=== PATIENT | female | born 1990 | race Two or more races ===

== ENCOUNTER 2024-11-15 18:24 | Emergency (ER) | payer OTHER, SELFPAY ==
[2024-11-15 20:05] VITALS: BP 133/81; PULSE 66; RESP 17; TEMP 37.2; O2SAT 99
--- NOTE | 2024-11-15 20:23 | PD.EDNV ---
Nausea/Vomit./Diarrhea-RME/HPI General Chief complaint: Nausea/Vomiting/Diarrhea Stated complaint: VOMITING X 2 DAYS Time Seen by Provider: 11/15/24 20:20 Arrival date/time: 11/15/24 18:24 34F with history of marijuana use presents to ED with several days of N/V and non-bloody diarrhea. Patient has had intermittent N/V for over 1 year now. Limitations: no limitations Related Data Previous Rx's ?Medication ?Instructions ?Recorded cefuroxime axetil 500 mg tablet 500 mg PO BID 7 days #14 tabs 11/15/24 metoclopramide HCl 5 mg tablet 5 mg PO BID PRN nausea and 11/15/24 (Reglan) vomiting #14 tabs Allergies Allergy/AdvReac Type Severity Reaction Status Date / Time No Known Allergies Allergy Verified 11/15/24 18:27 Review of Systems Review of Systems Systems Reviewed: All systems reviewed, normal except as documented Gastrointestinal Gastrointestinal: Reports as per HPI, Reports diarrhea, Reports nausea and Reports vomiting Past Medical History Past Medical History CARDIAC: Negative Congestive Heart Failure RESPIRATORY: Negative Chronic Obstructive Pulmonary Disease (COPD) GASTROINTESTINAL: Positive Gall Bladder Disease GENITOURINARY: Negative Renal Disease ENDOCRINE: Negative Diabetes Mellitus Type 1 or Diabetes Mellitus Type 2 PSYCHO/SOCIAL: Positive Depression Social History SMOKING STATUS: Never smoker SUBSTANCE USE: marijuana ED Exam General Limitations: Present no limitations General appearance: Present alert and in no apparent distress Head Head exam: Present atraumatic Neck Neck exam: Present normal inspection, full ROM and trachea midline Chest Chest inspection: Present normal inspection and symmetric chest wall rise Psychiatric Psychiatric exam: Present normal affect and normal mood Skin Skin exam: Present warm, intact and normal color Course Quality Measures none Orders Category Date Time Status Insert IV NOW Care 11/15/24 21:47 Completed CBC Stat Lab 11/15/24 20:34 Completed CMP [Comprehensive Metabolic Panel] Stat Lab 11/15/24 20:34 Completed Drug Screen,Urine Stat Lab 11/15/24 21:08 Completed HCG Qualitative,Urine Stat Lab 11/15/24 21:08 Completed Lactate (Lactic Acid) Stat Lab 11/15/24 20:34 Completed Procalcitonin Stat Lab 11/15/24 20:34 Completed Urinalysis, C/S if Indicated Stat Lab 11/15/24 21:08 Completed Urine Culture Stat Lab 11/15/24 21:08 Received DiphenhydrAMINE INJ [Benadryl Inj] Med 11/15/24 22:32 Discontinued 25 mg IVP X1 ONE Metoclopramide Inj [Reglan Inj] Med 11/15/24 22:32 Discontinued 10 mg IVP X1 ONE Ondansetron Odt [Zofran Odt] Med 11/15/24 20:21 Discontinued 4 mg PO X1 ONE Pantoprazole Inj [Protonix Inj] Med 11/15/24 22:32 Discontinued 40 mg IVP X1 ONE Ringers Lactated 1000 ml [Lactated Ringers] 1,000 ml Med 11/15/24 21:47 Discontinued IV 999 mls/hr Ringers Lactated 1000 ml [Lactated Ringers] 1,000 ml Med 11/15/24 23:14 Discontinued IV 999 mls/hr cefTRIAXone/D5w 1gm IV premix [Rocephin/D5w 1gm IV Med 11/15/24 21:49 Discontinued premix] 1 gm in 50 ml IV X1 Vital Signs Vital signs: Vital Signs Temperature 99.0 F 11/15/24 20:05 Pulse Rate 66 11/15/24 20:05 Respiratory Rate 17 11/15/24 20:05 Blood Pressure 133/81 H 11/15/24 20:05 Pulse Oximetry (%) 99 11/15/24 20:05 Oxygen Delivery Method Room Air 11/15/24 20:05 O2 at 99% on RA and WNLs Nausea/Vomiting/Diarrhea MDM Narrative MDM Narrative:: 34F with history of marijuana use presents to ED with several days of N/V and non-bloody diarrhea. Patient has had intermittent N/V for over 1 year now. Physical exam reveals tired-appearing female. Patient is afebrile, alert, but appears tired. No leukocytosis. CMP unremarkable. HCG neg. Marijuana positive. UA dehydration and UTI. Meds and counselor aid given. Patient data External records reviewed:: [facility] previous records Clinical information provided by:: patient Social determinants that could affect healthcare access:: mental health Patient has the following chronic illnesses:: marijuana use How is presenting disease/condition affected by chronic disease/condition?: exacerbated by Evaluation data The following diagnostics were reviewed and interpreted by me:: lab results Lab and/or radiology exams considered but not ordered:: ordered Interpretation Summary: above Medications / Prescriptions Medications / Prescriptions considered but not ordered:: ordered Medication administrations:: Medication Administration History Discontinued Medications Diphenhydramine HCl (Diphenhydramine Inj 50 Mg/Ml Vial) 25 mg IVP X1 ONE Stop: 11/15/24 22:33 Last Admin: 11/15/24 22:58 Dose: 25 mg Documented By: KANIKA Lactated Ringer's (Lactated Ringers) 1,000 mls @ 999 mls/hr IV .Q1H1M ONE Stop: 11/15/24 22:47 Last Admin: 11/15/24 22:27 Dose: 999 mls/hr Documented By: KANIKA Ceftriaxone Sodium/Dextrose (Rocephin/D5w 1gm Iv Premix) 1 gm in 50 mls @ 100 mls/hr IV X1 ONE Stop: 11/15/24 22:18 Last Infusion: 11/15/24 23:03 Dose: Infused Documented By: Admin: 11/15/24 22:26 Dose: 100 mls/hr Documented By: KANIKA Lactated Ringer's (Lactated Ringers) 1,000 mls @ 999 mls/hr IV .Q1H1M ONE Stop: 11/16/24 00:14 Last Admin: 11/15/24 23:42 Dose: Not Given Documented By: KANIKA Non-Admin Reason: Cancelled by Provider Metoclopramide HCl (Metoclopramide Inj 5 Mg/Ml Vial 2 Ml) 10 mg IVP X1 ONE; Protocol Stop: 11/15/24 22:33 Last Admin: 11/15/24 22:58 Dose: 10 mg Documented By: KANIKA Ondansetron HCl (Ondansetron Odt 4 Mg Tabrap) 4 mg PO X1 ONE; Protocol Stop: 11/15/24 20:22 Last Admin: 11/15/24 20:26 Dose: 4 mg Documented By: JESSE Pantoprazole Sodium (Pantoprazole Inj 40 Mg Vial) 40 mg IVP X1 ONE Stop: 11/15/24 22:33 Last Admin: 11/15/24 22:58 Dose: 40 mg Documented By: KANIKA above Consultations Consultation(s) initiated? (list below): No Diagnosis Nausea Differential Diagnosis: traveler's diarrhea, food poisoning, gastroenteritis, clostridium difficile infection, drug-induced nausea and vomiting, dehydration and other (UTI) Most likely diagnosis given after review of the tests above:: gastroenteritis, UTI, drug-induced N/V Admission Indicated Admission indicated?: not indicated Admission Request Was there a request for admission?: No Disposition Plan Disposition Plan: Discharge Discharge Attestation Discharge Attestation: The patient and all family members were given an opportunity to ask questions and understood the discharge instructions. Discharge instructions specifically effects, indications for sooner follow up or return to the emergency department, and the expected course of current diagnosis. Patient condition: Stable Discharge Plan Plan Patient Disposition: HOME (Self Care) Discharge Disposition comment: Stable Prescriptions/Referrals Prescriptions/Med Rec: New metoclopramide HCl [Reglan] 5 mg tablet 5 mg PO BID PRN (Reason: nausea and vomiting) Qty: 14 0RF cefuroxime axetil 500 mg tablet 500 mg PO BID 7 Days Qty: 14 0RF Referrals: No Primary/Family,Physician [Primary Care Provider] - In 1 week Problem List Clinical Impression: Drug-induced nausea and vomiting, UTI (urinary tract infection), Gastroenteritis Patient/Caregiver Discharge Instructions Education Materials: ED CYSTITIS Female Adult, ED Vomiting (Adult) Additional Instructions: Please follow-up with PCP within 24-48 hours and return immediately if symptoms worsen. 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 Brock
[2024-11-15] MEDS: ONDANSETRON ODT 4 MG TABRAP PO (20:26)
[2024-11-15 20:50] LABS: Lactate (Lactic Acid) 1.4 mMol/L (0.4-2.0)
[2024-11-15 20:58] LABS: Basophils # (Auto) 0.0 Thou/mm3 (0.0-0.2); Basophils % (Auto) 0 % (0-2.5); Eosinophils # (Auto) 0.0 Thou/mm3 (0.0-0.5); Eosinophils % (Auto) 0 % (0-10); Hematocrit 41.3 % (36.0-46.0); Hemoglobin 14.4 g/dL (12.0-16.0); Immature Granulocytes Auto 0.01 Thou/mm3 (0.00-0.00); Lymphocytes # (Auto) 0.6 Thou/mm3 (1.0-4.8); Lymphocytes % (Auto) 7 % (10-50); Mean Corpuscular HGB Conc 34.9 g/dl (31.0-37.0); Mean Corpuscular Hemoglobin 31.7 pg (25.0-35.0); Mean Corpuscular Volume 91 fL (80-100); Monocytes # (Auto) 0.3 Thou/mm3 (0.0-0.8); Monocytes % (Auto) 3 % (0-12); Neutrophils # (Auto) 7.8 Thou/mm3 (1.8-7.7); Neutrophils % (Auto) 90 % (37-80); Nucleated Red Blood Cell # 0.00 Thou/mm3 (0.00-0.00); Nucleated Red Blood Cell % 0 /100 WBC (0); Platelet Count 167 Thou/mm3 (140-440); RDW Standard Deviation 40.3 fL (36.4-46.3); Red Blood Count 4.54 Miln/mm3 (4.00-5.20); White Blood Count 8.7 Thou/mm3 (3.6-11.0)
[2024-11-15 21:18] LABS: Collection Type, Urine Clean Catch
[2024-11-15 21:18] LABS: Alanine Aminotransferase 12 U/L (10-49); Albumin, Serum 5.4 gm/dL (3.5-5.0); Albumin/Globulin Ratio 2.8 (1.2-2.2); Alkaline Phosphatase 74 U/L (46-116); Anion Gap 15 (7-16); Aspartate Amino Transferase 20 U/L (0-34); BUN/Creatinine Ratio 10 Ratio (12-20); Bilirubin,Total 1.1 mg/dL (0.3-1.2); Blood Urea Nitrogen 8 mg/dL (9-23); Calcium 10.4 mg/dL (8.3-10.6); Calcium (Corrected) 10.4 mg/dL (8.5-10.1); Carbon Dioxide 24.0 mMol/L (20.0-31.0); Chloride 99 mMol/L (98-107); Creatinine (Component) 0.8 mg/dL (0.6-1.3); Globulin 1.9 gm/dL (2.3-3.5); Glucose 136 mg/dL (74-106); Osmolality,Calculated 275 (275-295); Potassium 3.4 mMol/L (3.4-5.1); Procalcitonin < 0.04 ng/ml (0.0-0.49); Sodium 138 mMol/L (136-145); Total Protein 7.3 gm/dL (5.7-8.2); eGFR > 60 See Note
[2024-11-15 21:27] LABS: HCG Qualitative,Urine Negative
[2024-11-15 21:37] LABS: Amorphous Crystals,Urine Present (Absent); Bacteria,Urine 1+; Bilirubin,Urine Negative (Negative); Blood,Urine Negative (Negative); Clarity,Urine Turbid (Clear/Hazy); Color,Urine Yellow (Lt Yel-Yel); Culture Indicated,Urine Yes; Glucose, Urine Negative (Negative); Ketones,Urine 4+ (Negative); Leukocyte Esterase,Urine Positive (Negative); Nitrite,Urine Negative (Negative); PH,Urine 7.0 (5.0-7.0); Protein,Urine 3+ (Neg - Trace); RBC,Urine 16 /hpf (0-3); Specific Gravity,Urine 1.034 (1.001-1.035); Squamous Epithelial Cell,Urine 10 /hpf (0-5); Urobilinogen,Urine 2.0 mg/dL (0.0-1.0); WBC,Urine 45 /hpf (0-5)
[2024-11-15 21:39] LABS: Amphetamine/Methamp Scrn,U Negative (Negative); Barbiturate Screen,Urine Negative (Negative); Benzodiazepines Screen,Urine Negative (Negative); Benzoylecgonine Screen, Ur Negative (Negative); Fentanyl Screen,Urine Negative (Negative); Opiate Screen,Urine Negative (Negative); THC Screen,Urine Positive (Negative)
[2024-11-15] MEDS: cefTRIAXone/D5w 1gm IV premix 1 GM/50 ML BAG IV (22:26)
[2024-11-15] MEDS: RINGERS LACTATED 1000 ML 1,000 ML 999 ML IV (22:27)
[2024-11-15] MEDS: METOCLOPRAMIDE INJ 5 MG/ML VIAL 2 ML 10 MG IVP (22:58)
[2024-11-15 23:42] VITALS: BMI 23.1
[2024-11-15 23:43] VITALS: BP 125/67; PULSE 78; RESP 19; TEMP 36.6; O2SAT 99
== END 2024-11-15 23:44 | disposition home or self-care (01) ==
PROVIDERS: Physician Assistant; Emergency Provider Emergency Medicine
DX: K52.9 Noninfective gastroenteritis and colitis, unspecified (principal); N39.0 Urinary tract infection, site not specified; R11.2 Nausea with vomiting, unspecified; T50.905A Adverse effect of unspecified drugs, medicaments and biological substances, initial encounter
CPT/HCPCS: 36415; 80053; 80307; 81001; 81025; 83605; 84145; 85025; 87077; 87086; 87186; 96365; 96375; 99283; J0696; J1200; J2470; J2765; J7120; Q0162

== ENCOUNTER 2025-02-01 17:39 | Emergency (ER) | payer MEDICAID, SELFPAY ==
--- NOTE | 2025-02-01 17:53 | EDNOTE_ITS ---
ED Wound/Laceration-RME/HPI General Chief Complaint: Wound/Laceration Stated Complaint: LAC L) INDEX FINGER Time Seen by Provider: 02/01/25 17:52 Arrival date/time: 02/01/25 17:39 34-year-old female patient came in for evaluation regarding left index finger laceration palmar aspect distal phalanx, incident happened few minutes prior to ER visit patient sustained a laceration with a knife while trying to prepare for Thanksgiving. Patient tetanus vaccination is unknown. Patient is able to bend and extend the finger without any limitation. Related Data Previous Rx's ?Medication ?Instructions ?Recorded metoclopramide HCl 5 mg tablet 5 mg PO BID PRN nausea and 11/15/24 (Reglan) vomiting #14 tabs Allergies Allergy/AdvReac Type Severity Reaction Status Date / Time No Known Allergies Allergy Verified 02/01/25 17:42 Review of Systems Review of Systems Narrative Review of Systems: Review of system reviewed and within normal limits except mentioned in HPI ED Exam Narrative Physical exam: VITAL SIGNS: Reviewed. GENERAL APPEARANCE: Alert and interactive, follows commands, no acute distress, HEAD AND FACE: Non-traumatic. ENT: PERRL, pink conjunctivitis, eyelid no trauma, Mucous membrane moist. NECK: Supple, nontender, no nuchal rigidity. CHEST: No tenderness, no crepitus, no paradoxical movement, no retractions. LUNGS: Clear, well ventilated, symmetric, no rales, no wheezing, no ronchi, no stridor, good breath sounds bilaterally. HEART: Regular rate, regular rhythm, no murmur, no gallops. ABDOMEN: Soft, positive bowel sounds, nondistended, no guarding, nontender, no rebound, no masses, RECTAL: Deferred. GENITAL: Deferred. NEUROLOGICAL: Gross motor function intact sensory function intact, Appropriate for age. MUSCULOSKELE+ 1 cm gaping laceration to the left index finger distal phalanx palmar aspect, full range of motion. SKIN: Color pink, dry, no rash, no lacerations, no abrasions, no contusions. LYMPHATICS: Deferred. Course Quality Measures none Orders Category Date Time Status Ibuprofen Tab [Motrin Tab] Med 02/01/25 17:52 Discontinued 600 mg PO X1 ONE Lidocaine 1% Vial 20 ml [Xylocaine 1% 20 ML] Med 02/01/25 17:52 Discontinued 10 ml INFL X1 ONE TET,DIP/PERT AC (Adult)-Tdap [Boostrix Adult (Tdap) Med 02/01/25 17:52 Discontinued Vacc] 0.5 ml IMI .ONCE ONE Vital Signs Vital signs: Vital Signs Temperature 98.6 F 02/01/25 18:04 Pulse Rate 86 02/01/25 18:04 Respiratory Rate 18 02/01/25 18:04 Blood Pressure 127/83 02/01/25 18:04 Pulse Oximetry (%) 98 02/01/25 18:04 Oxygen Delivery Method Room Air 02/01/25 18:04 PROCEDURES: Laceration Laceration 1: Site: other (Finger) Size (cm): 1 Description: linear Depth: simple, single layer Local Anesthetic: lidocaine 1% Amount of anesthesia used (mL): 3 Pre-repair: wound explored, irrigated extensively and deep structures intact Skin layer closed with: nylon Suture size (cm): 5-0 Number of sutures: 4 Technique: simple, interrupted Wound / Laceration MDM Narrative MDM Narrative:: 34-year-old female patient came in for evaluation regarding left index finger laceration palmar aspect distal phalanx, incident happened few minutes prior to ER visit patient sustained a laceration with a knife while trying to prepare for Thanksgiving. Patient tetanus vaccination is unknown. Patient is able to bend and extend the finger without any limitation. Repair and suturing was done by me see procedure notes. Patient received Boostrix Motrin Stable for discharge home Patient data External records reviewed:: None Clinical information provided by:: patient and family Social determinants that could affect healthcare access:: none Patient has the following chronic illnesses:: None How is presenting disease/condition affected by chronic disease/condition?: no chronic disease Evaluation data The following diagnostics were reviewed and interpreted by me:: other (specify) (None) Lab and/or radiology exams considered but not ordered:: None Interpretation Summary: None Medications / Prescriptions Medications or Prescriptions considered but not ordered:: None Medication administrations:: Medication Administration History Discontinued Medications Diphtheria/Tetanus/Acell Pertussis (Diphth,Pertuss(Acell),Tet Vac 0.5 Ml Syr- Adult) 0.5 ml IMi .ONCE ONE Stop: 02/01/25 17:53 Last Admin: 02/01/25 18:21 Dose: 0.5 ml Documented By: GM Ibuprofen (Ibuprofen Tab 600 Mg Tablet) 600 mg PO X1 ONE Stop: 02/01/25 17:53 Last Admin: 02/01/25 18:22 Dose: 600 mg Documented By: GM Lidocaine HCl (Lidocaine Hcl 1% 20 Ml Vial) 10 ml INFL X1 ONE Stop: 02/01/25 17:53 Last Admin: 02/01/25 18:21 Dose: 10 ml Documented By: GM Comments: MEDICATION GIVEN TO ABREA BRUSHER AND SHEARER. See above Consultations Consultation(s) initiated? (list below): No Diagnosis Wound Differential Diagnosis: laceration, abrasion and avulsion of skin Most likely diagnosis given after review of the tests above:: Finger laceration Admission Indicated Admission indicated?: not indicated Admission Request Was there a request for admission?: No Disposition Plan Disposition Plan: Discharge Discharge Attestation Discharge Attestation: The patient and all family members were given an opportunity to ask questions and understood the discharge instructions. Discharge instructions specifically effects, indications for sooner follow up or return to the emergency department, and the expected course of current diagnosis. Patient condition: Stable Discharge Plan Plan Patient Disposition: HOME (Self Care) Discharge Disposition comment: Stable Prescriptions/Referrals Prescriptions/Med Rec: No Action metoclopramide HCl [Reglan] 5 mg tablet 5 mg PO BID PRN (Reason: nausea and vomiting) Qty: 14 0RF Referrals: Sharon Franz MD [Primary Care Provider] - In 1 week Problem List Clinical Impression: Finger laceration Patient/Caregiver Discharge Instructions Discharge Activity: activity as tolerated Education Materials: ED Laceration: All Closures Additional Instructions: Thank you for the opportunity for serving you today. You are stable for discharged . You are advised to: Follow-up with your PCP in 1 to 2 days Return to ED for worsening of symptoms Increase oral fluids Daily dressing with bacitracin as needed For removal of sutures in 7 to 10 days Print Language: Kiswahili Stand Alone Forms: Mag[employer] Award Info., Patient Portal Info Letter LEXX/YUN Supervising Physician LEXX/YUN Supervising Physician: MD Delmy
[2025-02-01 18:04] VITALS: BP 127/83; PULSE 86; RESP 18; TEMP 37; O2SAT 98
[2025-02-01] MEDS: DIPHTH,PERTUSS(ACELL),TET VAC 0.5 ML SYR- ADULT IMi (18:21)
[2025-02-01] MEDS: LIDOCAINE HCL 1% 20 ML VIAL 10 ML INFL (18:21)
[2025-02-01] MEDS: IBUPROFEN TAB 600 MG TABLET PO (18:22)
[2025-02-01 19:25] VITALS: BP 117/75; PULSE 73; RESP 18; TEMP 36.9; O2SAT 98
== END 2025-02-01 19:28 | disposition home or self-care (01) ==
PROVIDERS: Emergency Provider Emergency Medicine; PCP Internal Medicine
DX: S61.211A Laceration without foreign body of left index finger without damage to nail, initial encounter (principal); W26.0XXA Contact with knife, initial encounter; Y93.G1 Activity, food preparation and clean up; Z23 Encounter for immunization
CPT/HCPCS: 12002; 90471; 90715; 99281; J3490; A9270